=== PATIENT | male | born 1950 | race Caucasian/White ===

== ENCOUNTER → 2023-12-25 12:08 | Outpatient (REF) | payer MEDICARE, SELFPAY | LOC: HWRCS 12:08 | PROVIDERS: ATTENDING PHYSICIAN Internal Medicine Cardiovascular Disease; FAMILY PHYSICIAN Family Medicine | DX: I35.0 Nonrheumatic aortic (valve) stenosis (principal) | CPT/HCPCS: 93306 ==

== ENCOUNTER → 2024-04-26 11:53 | Outpatient (REF) | payer MEDICARE, SELFPAY ==
[2024-04-26 15:58] LABS: % Basophils 0.8 % (0-2); % Immature Granulocytes 0.5 % (0-0.5); % Lymphocytes 22.8 % (20.5-51.1); % Monocytes 8.3 % (1.7-9.3); % Neutrophils 64.6 % (42.2-75.2); Absolute Basophils 0.1 10^3/uL (0-0.2); Absolute Eosinophils 0.2 10^3/uL (0-0.7); Absolute Lymphocytes 1.7 10^3/uL (1.2-3.4); Absolute Monocytes 0.6 10^3/uL (0.1-0.6); Absolute Neutrophils 4.7 10^3/uL (1.4-6.5); Hematocrit 41.4 % (39.0-52.0); Hemoglobin 14.1 g/dL (13.0-18.0); Mean Corp Hgb Conc. 34.1 g/dL (33.0-37.0); Mean Corpuscular Hgb 30.2 pg (27.0-31.0); Mean Corpuscular Volume 88.7 fL (80.0-94.0); Mean Platelet Volume 10.4 fL (7.4-10.4); Nucleated Red Blood Cells % 0 % (-); Platelet Count 166 10^3/uL (130-400); Red Blood Cell Count 4.67 10^6/uL (4.70-6.10); White Blood Cell Count 7.3 10^3/uL (4.8-10.8)
[2024-04-26 16:04] LABS: ALT (SGPT) 36 U/L (0-50); AST (SGOT) 37 U/L (17-59); Albumin 4.4 g/dl (3.5-5.0); Alkaline Phosphatase 101 U/L (38-126); Blood Urea Nitrogen 20 mg/dl (9-20); Calcium 9.7 mg/dl (8.4-10.2); Carbon Dioxide 29 mmol/L (22-30); Chloride 102 mmol/L (98-107); Glucose 108 mg/dl (70-99); HDL Cholesterol 34 mg/dl; LDL Cholesterol, Calculated 83 mg/dl; Potassium 3.9 mmol/L (3.5-5.1); Sodium 143 mmol/L (135-145); Total Bilirubin 0.6 mg/dl (0.2-1.3); Total Cholesterol 138 mg/dl (50-199); Total Protein 6.7 g/dl (6.3-8.2); Triglyceride 106 mg/dl (10-149); Very Low Density Lipoprotein 21 mg/dl (0-30); eGFR > 60.00
== END ==
LOC: HWLAB 11:53
PROVIDERS: ATTENDING PHYSICIAN Internal Medicine Cardiovascular Disease; FAMILY PHYSICIAN Family Medicine
DX: E78.00 Pure hypercholesterolemia, unspecified (principal); I10 Essential (primary) hypertension
CPT/HCPCS: 36415; 80053; 80061; 85025

== ENCOUNTER 2024-05-26 09:51 | Day surgery (SDC) | payer MEDICARE, SELFPAY ==
[2024-05-26] VITALS (9 sets, daily range): BP systolic 134–163; BP diastolic 72–96; BMI 37.5
[2024-05-26] MEDS: VANCOCIN 530 MG IV (11:54)
--- NOTE | 2024-05-26 13:06 | PTCARENOTE ---
left inner fore arm iv developed sm quater size red hard area above site w vancomycin infusing . dr paul zamorano at bedside , noted that after vanco stopped iv flushed without pain and had positive blood return. pt is difficult iv access and was
stuck 3 times prior for current site. dr zamorano states to leave iv in for case , but start another in rt arm for vanco infusion. iv team came and started iv in rt arm as requested by .
--- NOTE | 2024-05-26 15:37 | ITS.CL.PACE ---
Chief Learning Officer - Pacemaker Implant
Pacemaker Implant
Procedure Report:
PACEMAKER GENERATOR CHANGE
Date of Procedure: May 26, 2024
Primary Care Provider: Dr. Cathy Machado
Primary website developer: Dr. Joel Etienne
PROCEDURES:
Removal of dual chamber PPM generator at IVNOD
Implant of new dual chamber PPM generator
Implant of new right ventricular lead
INDICATION FOR PROCEDURE:
1. PPM generator at VINOD
2. Non-reversible symptomatic bradycardia due to sinus node dysfunction.
3. Malfunction of chronic RV pacing lead
HISTORY:
He has history of remote permanent pacemaker implantation for sick sinus syndrome. Generator changed last in 2014. At that point there was normal function of the right atrial and right ventricular lead. Since that time right ventricular lead
fails to capture at maximal output. He is referred for permanent pacemaker generator change as his device is at replacement indices. He is also referred for attempted placement of a new right ventricular lead.
PROCEDURE:
The patient was prepped and draped in sterile fashion. Lidocaine with epi was used for local anesthesia. Central venous access was obtained via subclavian venipuncture. An incision was made at the left upper chest and the device and leads were
carefully dissected from the pocket. Hemostasis was obtained with electrocautery. The leads were from the device header and tested using an external analyzer.
Fluoroscopy as well as 'pace mapping' was used to determine likely anatomic site for left bundle branch pacing. The Medtronic C315 sheath was used to deliver the Medtronic 3830 Selectsecure pacing lead with the helix exposed just exposed from the
sheath tip during continuous monitoring when pacemapping the septum during gentle clockwise rotation to obtain a paced QRS morphology of a W pattern in lead V1. Once the suspected optimal site was identified, lead deployment was performed with
several rapid rotations as paced QRS morphology was intermittently monitored until a paced QRS complex in lead V1 demonstrated development of an R wave (Qr).
Unipolar pacing impedance dropped by approximately 200 ohms suggesting it had reached the left ventricular subendocardial.
Stable VEgm injury current is present throughout final lead position including at end of case, suggesting there was no perforation through the septum into the LV cavity.
Final unipolar pacing impedance is 1200 Ohms
Unipolar pacing threshold is stable at 1 V @0.4 ms.
Final conduction system paced QRS complex duration is 95] ms
LVAT is 78 ms and peak V5 -> peak V1 timing is 35 ms
The abandoned failed RV lead was capped.
The new ventricular pacing lead and the chronic right atrial lead were attached to the new device header.
The pocket was liberally irrigated with antibiotic solution. Once testing (see below) showed adequate and stable function, the leads were connected to the generator header and the leads and generator were placed within the pocket (Tyrex antibiotic
pouch was used). The pocket was closed in the typical fashion.
REMOVED:
Medtronic [id number]
ABANDONED:
Medtronic 5076 [id number] [id number]
IMPLANTS:
Medtronic [id number], SN: [id number], Left Pectoral
Medtronic 3830, LFF [id number]
CHRONIC:
RA Medtronic 5076 [id number]
DEVICE TESTING:
Sensing: RA 2.6 mV, RV 8.5 mV
Capture: RA 1 V@0.4ms, RV 0.75 V@0.4ms
Ohms: RA 399, RV 1134
FINAL PROGRAMMING
Lizandro Pacing: AAIR+ 70-130 ppm
COMPLICATIONS:
None
CONCLUSIONS:
Successful implant of right ventricular pacing lead utilizing Left Bundle Branch conduction system capture for pacing.
Removal /implant of dual-chamber permanent pacemaker generator
RECOMMENDATIONS:
1. Post-op care (tele, CXR, IV abx)
2. In-Office wound check in 5-7 days
Copy to:
Dr. Cathy Machado
Dr. Joel Etienne
--- NOTE | 2024-05-26 17:35 | PTCARENOTE ---
Rec'd report from EP Lab & rec'd pt AAOx3 w/no c/o CP or SOB. Pt's VS stable w/HR in the 60's, BP 145/92 upon arrival. Pt is A-paced on telemetry monitoring. Pt w/L chest wall PPM lead revision site w/dressing C/D/I w/no signs or symptoms of
bleeding or hematoma. Pt w/call mohr within reach & plan of care ongoing.
--- NOTE | 2024-05-26 22:00 | PTCARENOTE ---
assumed care of patient at the change of shift. AAOx3. denies any pain. L chest site-CDI. pressure dressing/arm immobilizer intact. educated patient on activity restrictions and verbalized understanding. Apaced on tele 60s. bp stable. reviewed plan
of care with patient and verbalized understanding. patient would like all of his medications at 2300. ambulating to the BR-steady on his feet. call mohr within reach. makes needs known.
no order placed for post PPM chest xray. reached out to Dr. Lizeth Valle. order placed for single view chest xray per MD. patient escorted by the PCT and tolerated. made comfortable back in bed.
[2024-05-26] MEDS: CARDURA 8 MG PO (23:01)
[2024-05-26] MEDS: ZETIA 10 MG PO (23:01)
[2024-05-26] MEDS: LIPITOR 80 MG PO (23:01)
[2024-05-26] MEDS: NORVASC 10 MG PO (23:06)
[2024-05-27 04:18] VITALS: BP 142/86
[2024-05-27 04:58] LABS: Hemoglobin 13.8 g/dL (13.0-18.0); Mean Corp Hgb Conc. 33.7 g/dL (33.0-37.0); Mean Corpuscular Volume 89.1 fL (80.0-94.0); Mean Platelet Volume 10.1 fL (7.4-10.4); Platelet Count 150 10^3/uL (130-400); White Blood Cell Count 7.4 10^3/uL (4.8-10.8)
[2024-05-27 05:29] LABS: Blood Urea Nitrogen 21 mg/dl (9-20); Carbon Dioxide 22 mmol/L (22-30); Chloride 103 mmol/L (98-107); Estimated Creatinine Clearance 80 ml/min; Glucose 131 mg/dl (70-99); Magnesium 2.2 mg/dl (1.6-2.3); Potassium 4.7 mmol/L (3.5-5.1); Sodium 140 mmol/L (135-145); eGFR > 60.00
[2024-05-27 06:15] LABS: Hepatitis C Antibody Negative (Negative)
[2024-05-27 07:40] VITALS: BP 148/87
[2024-05-27] MEDS: LASIX 20 MG PO (08:18)
[2024-05-27] MEDS: ZESTRIL 10 MG PO (08:18)
[2024-05-27] MEDS: KCL 10 MEQ PO (08:18)
[2024-05-27] MEDS: ASPIRIN 325 MG PO (08:18)
[2024-05-27] MEDS: TOPROL XL 50 MG PO (08:18)
--- NOTE | 2024-05-27 08:30 | W.PN.CARDCBS ---
Addendum entered and electronically signed by Oscar Valle MD 05/27/24 10:30:
Patient seen, interviewed and examined by me.
Well-appearing, no acute distress
Dressing at left upper chest is clean and dry
Regular rate and rhythm with normal S1 and S2, no S3 no S4. There is a grade 1/6 apical holosystolic murmur and no rubs. PMI is normally placed.
Lungs are clear to auscultation bilaterally without wheezes rales or rhonchi.
Abdomen soft nontender nondistended with normoactive bowel sounds
Extremities show trace pretibial edema bilaterally no clubbing or cyanosis.
Neurologic exam is grossly nonfocal.
Chest x-ray reviewed by me, normal stable appearances of the leads and no pneumothorax.
EKG from this morning reviewed by me, there is sinus rhythm with evidence of atrial pacing and intact AV conduction with a narrow QRS, pacemaker functioning in DDD mode
I reviewed yesterday's procedure, findings and results with the patient in detail and all of his questions have been answered.
We were able to successfully adding new right ventricular lead. I did make this lead a left bundle branch pacing lead to provide cardiac resynchronization should he ultimately require increased frequency of right ventricular pacing.
I reviewed with him our motion restrictions over the next month. He expresses understanding.
Discharge instructions reviewed. All of his questions answered.
From a cardiac standpoint he is stable for discharge to home today.
Original Note:
Today's Communication / Plan
-
stable for d/c home
Impression / Plan
-
Primary Care Provider: Dr. Cathy Machado
Primary minute clerk: Dr. Joel Etienne
Impression:
Symptomatic bradycardia
SSS
post PPM 2007
RV lead dysfunction
s/p new RV lead and generator change 05/26/24
HTN
HLD
DM2
CAD/NV POBA OM 2007
Renal artery stenosis post stent
Asthma
Mild
Plan:
post generator change and new RV lead
site stable
tele Apaced
CXR no PTX
HTN continue lisinopril, metoprolol, amlodipine
Activity restrictions reviewed
inc check 1 week
home today
Progress Note - Case Finisher
Subjective
Date of Service: May 27, 2024
denies cp, sob
Objective
Labs:
05/27/24 04:18
05/27/24 04:18
Labs
Hgb 13.8 g/dL (13.0-18.0) 05/27/24 04:18
Hct 41.0 % (39.0-52.0) 05/27/24 04:18
Plt Count 150 10^3/uL (130-400) 05/27/24 04:18
Sodium 140 mmol/L (135-145) 05/27/24 04:18
Potassium 4.7 mmol/L (3.5-5.1) 05/27/24 04:18
BUN 21 mg/dl (9-20) H 05/27/24 04:18
Creatinine 1.0 mg/dL (0.7-1.3) 05/27/24 04:18
Glucose 131 mg/dl (70-99) H 05/27/24 04:18
Vital Signs and I&O:
Vital Signs
Temp Pulse Resp BP Pulse Ox
98.6 F 84 20 148/87 91
05/27/24 07:38 05/27/24 08:18 05/27/24 07:38 05/27/24 08:18 05/27/24 07:38
Vital Signs
Temp Pulse Resp BP Pulse Ox
98.6 F 84 20 148/87 91
05/27/24 07:38 05/27/24 08:18 05/27/24 07:38 05/27/24 08:18 05/27/24 07:38
Intake & Output
05/25/24 05/26/24 05/27/24 05/28/24
06:59 06:59 06:59 06:59
Intake Total 950 / 950
Balance 950 / 950
Physical Exam
Physical Exam
NAD< AOX3
S1, S2, RRR
CTAB, non labored, no wheeze
SNTND bsx4
L CW dressing c/d/i no HT, scant marked drainage
pressure dressing removed
--- NOTE | 2024-05-27 08:42 | PTCARENOTE ---
Pt AOx3, no complaints of pain or discomfort. Paced on tele monitor, VSS. Independent OOB. Plan for discharge later this AM. Call mohr within reach.
--- NOTE | 2024-05-27 09:21 | CM ---
Reviewed chart. Met with Mr. Moses to review discharge plans. He states prior to admission he resides with his brother is a first floor apartment with five steps to enter. He states prior to admission he was independent with ambulation and adls.
He states he does not have any DME in the home. He states he has a prescription plan and uses [facility]. The discharge plan is to return home with his brother when medically stable.
[2024-05-27] MEDS: FLUAD (65 yr+) 2024-2025 FORMULA 0.5 ML IM (09:54)
--- NOTE | 2024-05-27 17:18 | W.DS.TRANS ---
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
-
Discharge Instructions:
Discharge Diagnosis/Procedures RV lead revision and generator change
Diet Low Cholesterol
Driving Restrictions No driving for 1 week
Bathing Restrictions OK to Shower
Instructions:
Stand-Alone Forms: DC Inst - Implanted Device
Changes to Home Medications: No
Discharge Medications:
DC Medications w/original date entered in [facility]
amlodipine 10 mg tablet 10 mg PO HS 08/21/09
aspirin 325 mg tablet 325 mg PO DAILY 08/21/09
clonidine HCl 0.3 mg tablet 0.3 mg PO Q4H PRN HTN 08/21/09
doxazosin 8 mg tablet 8 mg PO DAILY 11/16/14
lisinopril 10 mg tablet 10 mg PO DAILY 11/16/14
metoprolol succinate 25 mg tablet,extended release 24 hr 50 mg PO DAILY 11/16/14
atorvastatin 80 mg tablet 80 mg PO HS 05/26/24
epinephrine 0.125 mg/actuation aerosol inhaler (Primatene Mist) 1 puff inhalation Q4H PRN sob 05/26/24
ezetimibe 10 mg tablet 10 mg PO HS 05/26/24
furosemide 20 mg tablet (Lasix) 20 mg PO DAILY 05/26/24
pantoprazole 40 mg tablet,delayed release 40 mg PO DAILY PRN stomach upset 05/26/24
potassium chloride 8 mEq capsule,extended release 8 meq PO DAILY 05/26/24
Home Medication Changes
Pending Results: No
== END 2024-05-27 11:00 | disposition home or self-care (01) ==
LOC: CATH 09:51
PROVIDERS: Nurse Practitioner Adult Health; ATTENDING PHYSICIAN Internal Medicine Cardiovascular Disease; FAMILY PHYSICIAN Family Medicine; OTHER PHYSICIAN Internal Medicine Cardiovascular Disease
DX: T82.110D Breakdown (mechanical) of cardiac electrode, subsequent encounter (principal); Y83.9 Surgical procedure, unspecified as the cause of abnormal reaction of the patient, or of later complication, without mention of misadventure at the time of the procedure; I49.5 Sick sinus syndrome; Z88.1 Allergy status to other antibiotic agents; Z88.0 Allergy status to penicillin; Z79.82 Long term (current) use of aspirin; Z79.899 Other long term (current) drug therapy; E11.9 Type 2 diabetes mellitus without complications; E78.5 Hyperlipidemia, unspecified; I10 Essential (primary) hypertension; I25.10 Atherosclerotic heart disease of native coronary artery without angina pectoris; I49.1 Atrial premature depolarization; I70.1 Atherosclerosis of renal artery; J45.909 Unspecified asthma, uncomplicated; Z45.010 Encounter for checking and testing of cardiac pacemaker pulse generator [battery]
CPT/HCPCS: 33207; 33233; 71045; 80048; 83735; 85027; 86803; 90662; 93005; C1769; C1785; C1887; C1892; C1898; G0008; Q9967